=== PATIENT | female | born 1940 | race Caucasian/White ===

== ENCOUNTER 2017-04-11 05:23 | Inpatient (IN) ==
[2017-03-28 13:34] LABS: Basophils % 0.6 % (0.0-0.8); Eosinophils # 0.1 10*3/uL (0.0-0.87); Eosinophils % 1.2 % (0.00-10.9); Hematocrit 44.6 VOL% (35.7-47.0); Hemoglobin 14.4 GM/DL (12.0-16.0); Immature Granulocytes % 0.3 %; Immature Granulocytes Absolute 0.02 #; Lymphocytes # 1.5 10*3/uL (1.4-4.0); Lymphocytes % 22.2 % (21.3-54.2); Mean Corpuscular HGB Conc 32.3 GM/DL (32-36); Mean Corpuscular Hemoglobin 29 PG (27-34); Mean Corpuscular Volume 88.1 FL (87-102); Mean Platelet Volume 10.9 FL (9.6-12.0); Monocytes # 0.3 10*3/uL (0.11-0.8); Monocytes % 4.9 % (1.7-12.7); Neutrophils # 4.8 10*3/uL (1.4-7.4); Neutrophils % 70.8 % (38.7-73.9); Platelet Count 146 T/CUMM (130-400); Red Blood Count 5.06 MC/CUMM (3.8-5.5); Red Cell Distribution Width 12.6 % (9.3-17.3); White Blood Count 6.8 T/CUMM (4-12)
[2017-03-28 13:39] LABS: Apearance,Urine CLEAR (Clear); Bilirubin,Urine Negative (Negative); Blood, Urine Negative (Negative); Glucose,Urine (UA) Negative (Negative); Hyaline Casts,Urine 1 /LPF (0-3); Ketones,Urine Negative (Negative); Nitrite,Urine Negative (Negative); Protein,Urine Negative; RBC,Urine <1 /HPF (0-4); Squamous Epithelial Cell,Urine Occasional /HPF (0-10); Transitional Epi Cells,Urine Occasional /HPF (<1); Urine Color Yellow (Yellow); Urine Specific Gravity 1.008 (1.001-1.035); Urine Urobilinogen < 2.0 EU/DL (0.2-1.0); WBC,Urine 2 /HPF (0-6)
[2017-03-28 13:47] LABS: PT Patient Result 10.5 SECS; Partial Thromboplastin Time 24.2 SECS (0-40)
[2017-03-28 13:56] LABS: Albumin 4.1 G/DL (3.4-5.0); Bilirubin,Total 0.5 MG/DL (0.2-1.0); Calcium 9.2 MG/DL (8.5-10.1); Potassium 3.8 MMOL/L (3.5-5.1); Total Protein 7.1 G/DL (6.4-8.3)
[2017-04-11] MEDS ORDERED: VANCOMYCIN 1,000 MG VIAL ONE (05:53)
[2017-04-11] MEDS ORDERED: ceFAZolin 1,000 MG VIAL ONE (05:53)
[2017-04-11] MEDS ORDERED: DIAZEPAM 5 MG TABLET PO ONE (06:00)
[2017-04-11] MEDS ORDERED: FAMOTIDINE 20 MG TABLET PO ONE (06:00)
[2017-04-11] MEDS ORDERED: DIAZEPAM 5 MG TABLET ONE (06:21)
[2017-04-11] MEDS ORDERED: FAMOTIDINE 20 MG TABLET ONE (06:21)
[2017-04-11] MEDS ORDERED: ROPIVACAINE 0.5% 30 ML VIAL ONE (06:26)
[2017-04-11] MEDS ORDERED: ceFAZolin 1,000 MG in SYRINGE 1 EACH IV ONE (06:30)
[2017-04-11] MEDS ORDERED: LACTATED RINGERS 1,000 ML IV SCH (06:30)
[2017-04-11] MEDS ORDERED: VANCOMYCIN INJ 1,000 MG in SODIUM CHLORIDE 0.9% 250 ML IV ONE (06:30)
[2017-04-11] MEDS ORDERED: TRANEXAMIC ACID 1,000 MG/10 ML VIAL IV ONE (06:38)
[2017-04-11] MEDS ORDERED: BACITRACIN OINT 0.9 GM PACK TOP ONE (06:38)
[2017-04-11] MEDS ORDERED: PHENYLEPHRINE DRIP 20 MG/250 ML PREMIX IV ONE (07:43)
[2017-04-11] MEDS ORDERED: GLYCOPYRROLATE 0.4 MG/2 ML VIAL ONE ×2 (07:43→09:19)
[2017-04-11] MEDS ORDERED: ONDANSETRON 4 MG/2 ML VIAL IV PRN (08:59)
[2017-04-11] MEDS ORDERED: oxyCODONE IR 5 MG TABLET PO PRN ×2 (08:59)
[2017-04-11] MEDS ORDERED: MORPHINE 2 MG/1 ML SYRINGE IV PRN ×2 (08:59)
[2017-04-11] MEDS ORDERED: MAGNESIUM HYDROXIDE SUSP 30 ML UDCUP PO PRN (08:59)
[2017-04-11] MEDS ORDERED: PROPOFOL 200 MG/20 ML VIAL IV ONE (09:18)
[2017-04-11] MEDS ORDERED: fentaNYL 100 MCG/2 ML VIAL ONE (09:18)
[2017-04-11] MEDS ORDERED: SEVOFLURANE 1 UNIT/15 MINUTE INH ONE (09:18)
[2017-04-11] MEDS ORDERED: MIDAZOLAM 2 MG/2 ML VIAL ONE (09:19)
[2017-04-11] MEDS ORDERED: ROCURONIUM 100 MG/10 ML VIAL IV ONE (09:19)
[2017-04-11] MEDS ORDERED: SUCCINYLCHOLINE 200 MG/10 ML VIAL ONE (09:19)
[2017-04-11] MEDS ORDERED: ePHEDrine 50 MG/ML AMP ONE (09:20)
[2017-04-11] MEDS: LACTATED RINGERS 1,000 ML IV SCH ×2 (09:25→21:16)
[2017-04-11] MEDS ORDERED: KETOROLAC 15 MG/1 ML VIAL IV PRN (13:00)
[2017-04-11] MEDS: ROSUVASTATIN 20 MG TABLET PO SCH (13:46)
[2017-04-11] MEDS: ACETAMINOPHEN 500 MG TABLET PO SCH ×2 (13:46→18:58)
[2017-04-11] MEDS: LISINOPRIL 20 MG TABLET PO SCH (13:46)
[2017-04-11] MEDS: ceFAZolin 1,000 MG in SYRINGE 1 EACH IV SCH (17:22)
[2017-04-11] MEDS ORDERED: VANCOMYCIN INJ 1,000 MG in SODIUM CHLORIDE 0.9% 250 ML IV SCH (18:42)
[2017-04-12] MEDS: ceFAZolin 1,000 MG in SYRINGE 1 EACH IV SCH (00:56)
[2017-04-12] MEDS: ACETAMINOPHEN 500 MG TABLET PO SCH ×2 (00:57→06:49)
[2017-04-12 06:02] LABS: Basophils % 0.3 % (0.0-0.8); Eosinophils % 0.5 % (0.00-10.9); Hemoglobin 11.5 GM/DL (12.0-16.0); Immature Granulocytes % 0.3 %; Immature Granulocytes Absolute 0.03 #; Lymphocytes # 1.4 10*3/uL (1.4-4.0); Lymphocytes % 15.6 % (21.3-54.2); Mean Corpuscular HGB Conc 32.9 GM/DL (32-36); Mean Corpuscular Hemoglobin 29 PG (27-34); Mean Corpuscular Volume 89.3 FL (87-102); Mean Platelet Volume 11.1 FL (9.6-12.0); Monocytes # 0.8 10*3/uL (0.11-0.8); Monocytes % 9.4 % (1.7-12.7); Neutrophils # 6.4 10*3/uL (1.4-7.4); Neutrophils % 73.9 % (38.7-73.9); Platelet Count 104 T/CUMM (130-400); Red Blood Count 3.92 MC/CUMM (3.8-5.5); Red Cell Distribution Width 12.9 % (9.3-17.3); White Blood Count 8.7 T/CUMM (4-12)
[2017-04-12 07:05] VITALS: BP 123/70
[2017-04-12] MEDS: LACTATED RINGERS 1,000 ML IV SCH (07:29)
[2017-04-12] MEDS: LISINOPRIL 20 MG TABLET PO SCH (08:13)
[2017-04-12] MEDS: ROSUVASTATIN 20 MG TABLET PO SCH (08:13)
== END 2017-04-12 10:46 | disposition home or self-care (01) | DRG 483 ==
LOC: N.SDSINP 05:23 → N.3E 12:35
PROVIDERS: ADMIT Orthopaedic Surgery; ATTEND Orthopaedic Surgery

== ENCOUNTER 2022-02-15 09:28 | Inpatient (IN) ==
[2022-02-15] MEDS ORDERED: fentaNYL 100 MCG/2 ML VIAL IV STA (09:43)
[2022-02-15 10:28] LABS: Basophils % 0.1 % (0.0-0.8); Hematocrit 40.8 VOL% (35.7-47.0); Hemoglobin 13.2 GM/DL (12.0-16.0); Immature Granulocytes % 0.5 %; Immature Granulocytes Absolute 0.06 #; Lymphocytes % 7.8 % (21.3-54.2); Mean Corpuscular HGB Conc 32.4 GM/DL (32-36); Mean Corpuscular Volume 88.9 FL (87-102); Mean Platelet Volume 10.8 FL (9.6-12.0); Monocytes # 0.5 10*3/uL (0.11-0.8); Monocytes % 3.8 % (1.7-12.7); Neutrophils % 87.8 % (38.7-73.9); Platelet Count 138 T/CUMM (130-400); Red Blood Count 4.59 MC/CUMM (3.8-5.5); White Blood Count 12.5 T/CUMM (4-12)
[2022-02-15 10:38] LABS: PT Patient Result 11.2 SECS (10.1-12.1)
[2022-02-15 10:46] LABS: Albumin 3.6 G/DL (3.4-5.0); Bilirubin,Total 0.7 MG/DL (0.20-1.00); Calcium 9.5 MG/DL (8.5-10.1); Osmolality,Calculated 286.4 MOS/KG (273-304); Total Protein 6.5 G/DL (6.4-8.2)
[2022-02-15] MEDS ORDERED: ONDANSETRON 4 MG/2 ML VIAL IV PRN (11:26)
[2022-02-15] MEDS ORDERED: ALBUTEROL 2.5 MG/3 ML NEB RESP TX PRN (11:26)
[2022-02-15] MEDS ORDERED: hydrALAZINE 20 MG/1 ML VIAL IV PRN (11:26)
[2022-02-15] MEDS ORDERED: ACETAMINOPHEN 325 MG TABLET PO PRN (11:26)
[2022-02-15] MEDS ORDERED: SODIUM CHLORIDE 0.9% 500 ML IV ONE (12:54)
[2022-02-15] MEDS: SODIUM CHLORIDE 0.9% 1,000 ML IV SCH ×2 (17:30→22:16)
[2022-02-15 21:41] LABS: Bacteria,Urine Many /HPF (Few); Mucus,Urine Many /LPF (Occasional); RBC,Urine 13 /HPF (0-4); Urine Appearance Slightly Hazy (Clear); Urine Color Yellow (Yellow)
[2022-02-15 21:42] LABS: Bilirubin,Urine Negative (Negative); Blood, Urine Small mg/dL (Negative); Glucose,Urine (UA) Negative (Negative); Ketones,Urine Negative (Negative); Nitrite,Urine Positive (Negative); Protein,Urine 30 mg/dL (Negative); Urine Specific Gravity > 1.030 (1.001-1.035); Urine Urobilinogen 0.2 eU/dL (<2.0)
[2022-02-16 06:27] LABS: Basophils % 0.2 % (0.0-0.8); Eosinophils # 0.1 10*3/uL (0.0-0.87); Eosinophils % 0.4 % (0.00-10.9); Hematocrit 31.7 VOL% (35.7-47.0); Immature Granulocytes % 0.4 %; Immature Granulocytes Absolute 0.05 #; Lymphocytes # 2.3 10*3/uL (1.4-4.0); Mean Corpuscular HGB Conc 31.5 GM/DL (32-36); Mean Corpuscular Volume 92.2 FL (87-102); Mean Platelet Volume 11.5 FL (9.6-12.0); Monocytes % 8.2 % (1.7-12.7); Neutrophils % 71.8 % (38.7-73.9); Platelet Count 110 T/CUMM (130-400); Red Blood Count 3.44 MC/CUMM (3.8-5.5); Red Cell Distribution Width 13.3 % (9.3-17.3); White Blood Count 11.9 T/CUMM (4-12)
[2022-02-16] MEDS ORDERED: ROPIVACAINE 0.5% 30 ML VIAL ONE (06:42)
[2022-02-16] MEDS ORDERED: LIDOCAINE 1% 5 ML VIAL ONE (06:42)
[2022-02-16] MEDS ORDERED: DEXAMETHASONE 4 MG/1 ML VIAL ONE (06:42)
[2022-02-16] MEDS ORDERED: fentaNYL 100 MCG/2 ML VIAL ONE ×2 (06:51→07:43)
[2022-02-16] MEDS ORDERED: MIDAZOLAM 2 MG/2 ML VIAL ONE (06:51)
[2022-02-16 06:54] LABS: Calcium 8.2 MG/DL (8.5-10.1); Potassium 3.9 MMOL/L (3.5-5.1); Risk Ratio 2.3; Thyroid Stimulating Hormone 0.735 uIU/ml (0.358-3.74); VLDL Cholesterol 14.4 MG/DL
[2022-02-16] MEDS ORDERED: ceFAZolin 2,000 MG/50 ML DUPLEX IV ONE (07:00)
[2022-02-16] MEDS ORDERED: SEVOFLURANE 1 UNIT/15 MINUTE INH ONE (07:32)
[2022-02-16] MEDS ORDERED: propofoL 200 MG/20 ML VIAL IV ONE (07:32)
[2022-02-16] MEDS ORDERED: ONDANSETRON 4 MG/2 ML VIAL ONE (07:32)
[2022-02-16] MEDS ORDERED: ACETAMINOPHEN INJ 1,000 MG/100 ML VIAL IV ONE (07:43)
[2022-02-16] MEDS ORDERED: MAGNESIUM HYDROXIDE SUSP 30 ML UDCUP PO PRN (08:31)
[2022-02-16] MEDS ORDERED: BISACODYL 10 MG SUPP RECTAL PRN (08:32)
[2022-02-16] MEDS ORDERED: LACTULOSE 20 GM/30 ML UDCUP PO PRN (08:32)
[2022-02-16] MEDS ORDERED: diphenhydrAMINE CAP 25 MG CAPSULE PO PRN (08:32)
[2022-02-16] MEDS ORDERED: PHENYLEPHRINE 1 MG/10 ML SYRINGE IV ONE (08:33)
[2022-02-16] MEDS ORDERED: MORPHINE 2 MG/1 ML SYRINGE IV PRN ×2 (08:35→08:53)
[2022-02-16] MEDS ORDERED: OLMESARTAN 20 MG TABLET PO SCH (09:00)
[2022-02-16] MEDS: cefTRIAXone 1,000 MG in SODIUM CHLORIDE 0.9% 100 ML IV SCH (10:24)
[2022-02-16] MEDS: PANTOPRAZOLE 40 MG TABLET PO SCH (10:24)
[2022-02-16] MEDS: ROSUVASTATIN 20 MG TABLET PO SCH (10:24)
[2022-02-16] MEDS: METOPROLOL SUCCINATE XL 25 MG TABLET PO SCH (10:25)
[2022-02-16] MEDS: EZETIMIBE 10 MG TABLET PO SCH (10:25)
[2022-02-16] MEDS ORDERED: SODIUM CHLORIDE 0.9% 500 ML IV ONE (12:58)
[2022-02-16 13:30] LABS: Hematocrit 25.9 VOL% (35.7-47.0); Hemoglobin 8.1 GM/DL (12.0-16.0)
[2022-02-16] MEDS: ceFAZolin 2,000 MG/50 ML DUPLEX IV SCH ×2 (14:11→21:36)
[2022-02-16] MEDS: LACTATED RINGERS 1,000 ML IV SCH ×2 (16:10→21:38)
[2022-02-16] MEDS: FONDAPARINUX 2.5 MG/0.5 ML SYRINGE SUBCUT SCH (18:08)
[2022-02-16 22:30] LABS: Hematocrit 24.8 VOL% (35.7-47.0); Hemoglobin 7.9 GM/DL (12.0-16.0)
[2022-02-17 05:24] LABS: Basophils % 0.1 % (0.0-0.8); Eosinophils % 0.1 % (0.00-10.9); Hematocrit 22.7 VOL% (35.7-47.0); Hemoglobin 7.3 GM/DL (12.0-16.0); Immature Granulocytes % 0.5 %; Immature Granulocytes Absolute 0.05 #; Lymphocytes # 1.4 10*3/uL (1.4-4.0); Lymphocytes % 14.7 % (21.3-54.2); Mean Corpuscular HGB Conc 32.2 GM/DL (32-36); Mean Platelet Volume 11.7 FL (9.6-12.0); Monocytes % 10.3 % (1.7-12.7); Neutrophils % 74.3 % (38.7-73.9); Red Cell Distribution Width 13.3 % (9.3-17.3); White Blood Count 9.7 T/CUMM (4-12)
[2022-02-17 05:27] LABS: Platelet Count 79 T/CUMM (130-400); Red Blood Count 2.55 MC/CUMM (3.8-5.5)
[2022-02-17 05:31] LABS: Calcium 7.4 MG/DL (8.5-10.1); Osmolality,Calculated 291.7 MOS/KG (273-304)
[2022-02-17 05:32] LABS: Hypochromia 1+; Platelet Estimate Decreased
[2022-02-17] MEDS: LACTATED RINGERS 1,000 ML IV SCH (05:38)
[2022-02-17] MEDS: ceFAZolin 2,000 MG/50 ML DUPLEX IV SCH (05:38)
[2022-02-17] MEDS ORDERED: SODIUM CHLORIDE 0.9% 1,000 ML IV PRN (07:44)
[2022-02-17] MEDS ORDERED: SODIUM CHLORIDE 0.9% 500 ML IV ONE (07:53)
[2022-02-17] MEDS: EZETIMIBE 10 MG TABLET PO SCH (08:33)
[2022-02-17] MEDS: ROSUVASTATIN 20 MG TABLET PO SCH (08:33)
[2022-02-17] MEDS: PANTOPRAZOLE 40 MG TABLET PO SCH (08:33)
[2022-02-17] MEDS: METOPROLOL SUCCINATE XL 25 MG TABLET PO SCH (08:33)
[2022-02-17] MEDS: cefTRIAXone 1,000 MG in SODIUM CHLORIDE 0.9% 100 ML IV SCH (09:42)
[2022-02-17] MEDS: FONDAPARINUX 2.5 MG/0.5 ML SYRINGE SUBCUT SCH (19:17)
[2022-02-17 20:18] LABS: Hematocrit 30.5 VOL% (35.7-47.0)
[2022-02-17 20:19] LABS: Hemoglobin 9.8 GM/DL (12.0-16.0)
[2022-02-18 05:33] LABS: Basophils % 0.4 % (0.0-0.8); Eosinophils # 0.2 10*3/uL (0.0-0.87); Eosinophils % 2.5 % (0.00-10.9); Hematocrit 29.4 VOL% (35.7-47.0); Hemoglobin 9.4 GM/DL (12.0-16.0); Immature Granulocytes % 0.6 %; Immature Granulocytes Absolute 0.05 #; Lymphocytes % 23.5 % (21.3-54.2); Mean Corpuscular Volume 91.6 FL (87-102); Mean Platelet Volume 11.3 FL (9.6-12.0); Monocytes # 0.9 10*3/uL (0.11-0.8); Monocytes % 10.3 % (1.7-12.7); Neutrophils % 62.7 % (38.7-73.9); Platelet Count 75 T/CUMM (130-400); Red Blood Count 3.21 MC/CUMM (3.8-5.5); Red Cell Distribution Width 13.5 % (9.3-17.3); White Blood Count 8.4 T/CUMM (4-12)
[2022-02-18 06:11] LABS: Platelet Estimate Decreased
[2022-02-18] MEDS: METOPROLOL SUCCINATE XL 25 MG TABLET PO SCH (08:45)
[2022-02-18] MEDS: PANTOPRAZOLE 40 MG TABLET PO SCH (08:45)
[2022-02-18] MEDS: ROSUVASTATIN 20 MG TABLET PO SCH (08:45)
[2022-02-18] MEDS: cefTRIAXone 1,000 MG in SODIUM CHLORIDE 0.9% 100 ML IV SCH (08:46)
[2022-02-18] MEDS: EZETIMIBE 10 MG TABLET PO SCH (09:44)
[2022-02-18] MEDS: FONDAPARINUX 2.5 MG/0.5 ML SYRINGE SUBCUT SCH (22:36)
[2022-02-19 05:37] LABS: Basophils % 0.1 % (0.0-0.8); Eosinophils # 0.2 10*3/uL (0.0-0.87); Eosinophils % 2.5 % (0.00-10.9); Hematocrit 31.1 VOL% (35.7-47.0); Hemoglobin 10.1 GM/DL (12.0-16.0); Immature Granulocytes % 0.4 %; Immature Granulocytes Absolute 0.03 #; Lymphocytes # 1.4 10*3/uL (1.4-4.0); Lymphocytes % 18.6 % (21.3-54.2); Mean Corpuscular HGB Conc 32.5 GM/DL (32-36); Mean Corpuscular Volume 89.9 FL (87-102); Mean Platelet Volume 11.4 FL (9.6-12.0); Monocytes # 0.7 10*3/uL (0.11-0.8); Monocytes % 9.2 % (1.7-12.7); Neutrophils % 69.2 % (38.7-73.9); Red Blood Count 3.46 MC/CUMM (3.8-5.5); Red Cell Distribution Width 13.2 % (9.3-17.3); White Blood Count 7.5 T/CUMM (4-12)
[2022-02-19 05:39] LABS: Platelet Count 91 T/CUMM (130-400)
[2022-02-19 06:08] LABS: Hypochromia Slight; Platelet Estimate Decreased
[2022-02-19 06:27] LABS: Calcium 7.8 MG/DL (8.5-10.1); Osmolality,Calculated 287.8 MOS/KG (273-304)
[2022-02-19] MEDS: ROSUVASTATIN 20 MG TABLET PO SCH (09:06)
[2022-02-19] MEDS: EZETIMIBE 10 MG TABLET PO SCH (09:06)
[2022-02-19] MEDS: METOPROLOL SUCCINATE XL 25 MG TABLET PO SCH (09:06)
[2022-02-19] MEDS: PANTOPRAZOLE 40 MG TABLET PO SCH (09:06)
[2022-02-19] MEDS: cefTRIAXone 1,000 MG in SODIUM CHLORIDE 0.9% 100 ML IV SCH (09:08)
[2022-02-19] MEDS ORDERED: TUBERCULIN SKIN TEST 0.1 ML SYRINGE INTRADERM ONE (10:00)
[2022-02-19 11:32] VITALS: BP 112/67
[2022-02-19] MEDS ORDERED: METOPROLOL SUCCINATE XL 50 MG TABLET PO SCH (21:00)
== END 2022-02-19 13:48 | disposition swing bed (61) | DRG 481 ==
LOC: N.ED 09:28 → SUATTDRO 11:26 → N.EDINP 11:26 → N.3E 12:48
PROVIDERS: ADMIT Internal Medicine; ATTEND Family Medicine